=== PATIENT | male | born 1970 | race Caucasian/White ===

== ENCOUNTER 2020-07-29 12:25 | Emergency (ER) | payer BC, SELFPAY ==
[2020-07-29 12:46] VITALS: BP 146/78; PULSE 99; RESP 16; TEMP 36.6; O2SAT 100; BMI 37.3
--- NOTE | 2020-07-29 12:51 | HMH.EDUTC ---
[facility] [place] Clinical Impression: Exposure to COVID-19 virus Disposition: Home, Self-Care Condition on Discharge: Good Instructions: Preventing the Spread of Coronavirus Discharge Instructions Additional Instructions: Drink plenty of fluids. Take tylenol for pain or fever. Follow up with your regular doctor. GO TO THE ER FOR ANY WORSENING SYMPTOMS Referrals: Yung Ni [Primary Care Provider] - Forms: Work/School Release Time of Disposition: 13:01 Medical Decision Making - Medical Records Medical records reviewed: No: I reviewed the patient's medical records. - Demetrio Inquiry Pt receiving controlled substance: No Vital Signs: 07/29/20 12:46 07/29/20 13:12 Temperature 97.9 F 97.9 F Temperature Source Oral Pulse Rate 99 H Pulse Rate [Right Brachial] 99 H Respiratory Rate 16 16 Blood Pressure 146/78 H Blood Pressure [Right Arm] 146/78 H Blood Pressure Mean [Right Arm] 100 Blood Pressure Source [Right Arm] Automatic Cuff Blood Pressure Position [Right Arm] Sitting 02 Sat by Pulse Oximetry 100 Oxygen Delivery Method Room Air Orders (Tests/Meds): ORDERS Category Date Time Status Covid-19 Nasal PCR Sendout Pedro Routine Lab 07/29/20 12:40 [place] [facility] [place] - General Stated complaint: covid exposure Time Seen by Provider: 07/29/20 12:51 Mode of Arrival: Ambulatory Source of Information: Patient Limitations: No Limitations Description of Symptoms (Recalled from Triage Doc. by RN): PATIENT REQUESTING COVID TEST D/T EXPOSURE; C/O COUGH HEENT Symptoms (Recalled from RN notes): No Resp Symptoms (Recalled from RN notes): Yes Skin Symptoms (Recalled from RN notes): No MS Symptoms (Recalled from RN notes): No Functional Status (Recalled from RN notes): WNL - History of Present Illness Provider Complaint: His was diagnosed with covid last week. He denies any symptoms, but he needs 2 negative test to be allowed to go back to work at [employer]. He denies any symptoms or complaints. - Related Data Home Medications Medication Instructions Recorded Confirmed Levothyroxine Sodium [Euthyrox] 150 mcg PO DAILY 07/29/20 07/29/20 Allergies Allergy/AdvReac Type Severity Reaction Status Date / Time No Known Allergies Allergy Verified 07/29/20 12:48 - Worker's Comp Is this a Worker's Comp case?: No [facility] History - Hepatitis A Screen Drug use history?: No High risk sexual behaviors?: No History of sexually transmitted infection?: No Currently employed?: No Childcare worker?: No Do you have indoor plumbing?: Yes Do you have electricity?: Yes Attestation statement:: This patient has been screened for Hepatitis A risk factors. I have reviewed the patient's past medical history: Yes - Social History Alcohol Intake: never Occupational Status: other ROS Obtained: Yes All systems reviewed & no additional complaints - Constitutional Constitutional: Reports system reviewed and no additional complaints, except as docu - Eyes Eyes: Reports system reviewed and no additional complaints, except as docu - ENT Ears, Nose, Mouth, and Throat: Reports system reviewed and no additional complaints, except as docu - Cardiovascular Cardiovascular: Reports system reviewed and no additional complaints, except as docu - Respiratory Respiratory: Yes system reviewed and no additional complaints, except as docu - Gastrointestinal Gastrointestingal: Reports: system reviewed and no additional complaints, except as docu Physical Exam - General General appearance: alert, in no apparent distress - Head Head exam: atraumatic, normocephalic, normal inspection - Eye Eye exam: Present: normal appearance, PERRL, EOMI - ENT ENT exam: Present: normal exam, normal oropharynx, mucous membranes moist, TM's normal bilaterally, normal external ear exam - Neck Neck exam: Present: normal inspection, full ROM, trachea midline. Absent: meningismus, lymphadenopathy
[2020-07-29 13:12] VITALS: BP 146/78; PULSE 99; RESP 16; TEMP 36.6; O2SAT 100
[2020-07-30 14:08] LABS: Covid-19 Nasal PCR Sendout Lex POSITIVE
--- NOTE | 2020-07-30 14:15 | PC.NURSE ---
Patient notified of positive COVID results. Educated on quarantine.
== END 2020-07-29 13:13 | disposition home or self-care (01) ==
PROVIDERS: Emergency Provider Nurse Practitioner Family; PCP Family Medicine
DX: U07.1 COVID-19 (principal)
CPT/HCPCS: 99201; U0004